=== PATIENT | male | born 1960 | race Caucasian/White ===

== ENCOUNTER 2017-01-02 11:14 | Emergency (ER) | payer MEDICAID, OTHER ==
[2017-01-02] MEDS ORDERED: Ketorolac 60 MG/2 ML SDV IM ONE (11:52)
[2017-01-02 11:53] VITALS: BP 111/44
--- NOTE | 2017-01-02 12:53 | EDM.PDOC ---
ED HPI GENERAL MEDICAL PROBLEM - General Chief Complaint: Upper Extremity Injury/Pain Stated Complaint: LEFT ELBOW/SHOULDER PAIN, FALL Time Seen by Provider: 01/02/17 11:55 Source of Information: Reports: Patient History Limitations: Reports: No Limitations - History of Present Illness INITIAL COMMENTS - FREE TEXT/NARRATIVE: pt fell in the apartment and hit his left shoulder and left elebow. He has a fair amount of swelling involving the elebow. Onset: Today Duration: Hour(s): Associated Symptoms: Reports: No Other Symptoms - Related Data Allergies Allergy/AdvReac Type Severity Reaction Status Date / Time No Known Allergies Allergy Verified 03/18/13 12:32 Home Meds: Home Meds Acetaminophen/HYDROcodone [Ronks 325-5 MG] 1 tab PO Q6H PRN 01/03/17 [History] Past Medical History - Past Health History Medical/Surgical History: Denies Medical/Surgical History Social & Family History - Tobacco Use Smoking Status *Q: Current Every Day Smoker Years of Tobacco use: 40 Packs/Tins Daily: 1 Used Tobacco, but Quit: No Second Hand Smoke Exposure: Yes - Caffeine Use Caffeine Use: Reports: Coffee, Energy Drinks, Soda, Tea - Alcohol Use Days Per Week of Alcohol Use: 4 Number of Drinks Per Day: 8 Total Drinks Per Week: 32 - Recreational Drug Use Recreational Drug Use: No Review of Systems - Review of Systems Review Of Systems: See Below Constitutional: Reports: No Symptoms Eyes: Reports: No Symptoms Ears: Reports: No Symptoms Nose: Reports: No Symptoms Mouth/Throat: Reports: No Symptoms Respiratory: Reports: No Symptoms Cardiovascular: Reports: No Symptoms GI/Abdominal: Reports: No Symptoms Musculoskeletal: Reports: Other (pain in the left elebow. ) Skin: Reports: No Symptoms ED EXAM, GENERAL - Physical Exam Exam: See Below Free Text/Narrative:: pt arrived with pain in th left elebow. Exam Limited By: No Limitations General Appearance: Alert, Anxious Ears: Normal TMs Nose: Normal Inspection Throat/Mouth: Normal Inspection Head: Atraumatic Neck: Normal Inspection Respiratory/Chest: No Respiratory Distress Cardiovascular: Normal Peripheral Pulses GI/Abdominal: Other ( Pain in the upper abdoman. ) Rectal (Males) Exam: Deferred Back Exam: Normal Inspection Extremities: Normal Inspection Neurological: Alert, Oriented, Normal Cognition Course - Vital Signs Last Recorded V/S: Last Vital Signs Temp 35.1 C L 01/02/17 11:51 Pulse 52 L 01/02/17 11:51 Resp 18 01/02/17 11:51 BP 111/44 L 01/02/17 11:51 Pulse Ox 100 01/02/17 11:51 - Orders/Labs/Meds Meds: Medications Discontinued Medications Generic Name Dose Route Start Last Admin Trade Name Freq PRN Reason Stop Dose Admin Ketorolac Tromethamine 60 mg 01/02/17 11:52 01/02/17 12:02 Toradol IM 01/02/17 11:53 60 mg ONETIME ONE Administration - Re-Assessments/Exams Free Text/Narrative Re-Assessment/Exam: 01/02/17 15:25 xrays show a markedly communited proximal ulna. Dr Loya plans to do surgeryon this on Saturday. h will see him in the clinic on . Departure - Departure Time of Disposition: 15:26 Disposition: Home, Self-Care 01 Condition: Fair Clinical Impression: Fracture of proximal ulna - Discharge Information Instructions: Ulnar Fracture Referrals: PCP,None [Primary Care Provider] - Forms: ED Department Discharge Care Plan Goals: appt with Dr Loya--ortho tomorrow, ice to the elebow, elevate on the pillow. norco 5/325 q6h prn for food.
--- NOTE | 2017-01-02 13:10 | CR ---
Left elbow There is a comminuted fracture involving the proximal ulna. There is a fracture through the mid olec ranon with 1.8 cm of distraction. The metaphyseal portion of the ulna is also fractured. The humerus or radius appear intact. Impression: 1. Comminuted fractures of the proximal ulna.
--- NOTE | 2017-01-02 13:11 | CR ---
Shoulder Comp Lt FINDINGS: There is normal alignment of the glenohumeral as well as AC joints. No fractures are demon strated. There are no significant degenerative changes. The soft tissues are unremarkable. IMPRESSION: Negative exam of the shoulder.
== END 2017-01-02 15:50 | disposition home or self-care (01) ==
LOC: JP.ED 11:14
DX: S52.002A Unspecified fracture of upper end of left ulna, initial encounter for closed fracture (principal); F17.210 Nicotine dependence, cigarettes, uncomplicated; W19.XXXA Unspecified fall, initial encounter; Y92.039 Unspecified place in apartment as the place of occurrence of the external cause
CPT/HCPCS: 73030; 73080; 96372; 99284; J1885

== ENCOUNTER 2017-01-04 06:14 | Day surgery (SDC) | payer MEDICAID ==
[2017-01-04] MEDS ORDERED: Lactated Ringers 1,000 ML IV SCH (07:00)
[2017-01-04] MEDS ORDERED: Scopolamine 1.5 MG Transdermal Patch TRDERM PRN (07:00)
[2017-01-04] MEDS ORDERED: Bupivacaine 0.5% 50 ML MDV ONE (07:10)
[2017-01-04] MEDS ORDERED: Dexamethasone 4 MG/ML SDV ONE (07:13)
[2017-01-04] MEDS ORDERED: Rocuronium 50 MG/5 ML Vial ONE (07:13)
[2017-01-04] MEDS ORDERED: Propofol 200 MG/20 ML SDV ONE (07:13)
[2017-01-04] MEDS ORDERED: Ondansetron 4 MG/2 ML SDV ONE (07:13)
[2017-01-04] MEDS ORDERED: Neostigmine Methylsulfate 1 MG/ML 5 ML Syringe ONE (07:13)
[2017-01-04] MEDS ORDERED: Povidone-Iodine 10% Soln 118.25 ML Bottle ONE (07:13)
[2017-01-04] MEDS ORDERED: fentaNYL 250 MCG/5 ML SDV ONE (07:13)
[2017-01-04] MEDS ORDERED: ceFAZolin 2 GM in Premix Bag 1 BAG IV ONE (07:30)
[2017-01-04] MEDS ORDERED: fentaNYL 100 MCG/2 ML SDV ONE ×3 (07:52→08:56)
[2017-01-04] MEDS ORDERED: CHECK SCOPOLAMINE PATCH DAILY TOP SCH (09:00)
[2017-01-04] MEDS ORDERED: Succinylcholine 200 MG/10 ML MDV ONE (09:06)
[2017-01-04] MEDS ORDERED: Bacitracin Oint 1 GM U/D Packet ONE (09:17)
[2017-01-04] MEDS ORDERED: hydrOXYzine HCl 100 MG/2 ML SDV IM ONE (10:00)
[2017-01-04] MEDS ORDERED: Meperidine PF 100 MG/ML Syringe IM ONE (10:00)
[2017-01-04] MEDS ORDERED: Acetaminophen/HYDROcodone 325-5 MG Tab PO PRN (10:28)
--- NOTE | 2017-01-04 10:44 | OR ---
DATE OF PROCEDURE: 01/04/2017 PREOPERATIVE DIAGNOSIS: Left olecranon fracture, closed. POSTOPERATIVE DIAGNOSIS: Left olecranon fracture, closed. PROCEDURE: 1. Open reduction and internal fixation of left olecranon fracture with comminution and 6 fragments. 2. Application of long arm splint. [employer] FINISHER: FLORIN Jeffrey. FLUID: Lactated Ringer solution. ESTIMATED BLOOD LOSS: 75 mL. ANESTHESIA: General endotracheal intubation. COMPLICATIONS: None. SPECIMEN: None. DISCHARGE DISPOSITION: Stable to PACU. INDICATIONS FOR THE PROCEDURE: The patient was seen preoperatively in the clinic. He had been at the emergency department two days ago after a refrigerator fell on him, as he was going backwards down the stairs, he was found to have a left olecranon fracture. He was placed into a posterior splint, told to followup in the clinic. We saw him in clinic. The risks and benefits of the procedure were explained to the patient. Informed consent was obtained. DETAILS OF PROCEDURE: The patient was seen preoperatively by myself and the Anesthesia Staff in the preoperative holding area where the operative site was marked. He was brought to the operative suite by Anesthesia staff where general anesthesia was administered. He was placed on to a PEG board in the right lateral recumbent position. All extremities were found to be well padded. The left upper extremity had a well-padded tourniquet placed. He was then placed into a very simple U-arm rivera with extra padding. The left upper extremity was then prepped and draped in a sterile manner. Time-out was called identifying the correct patient, correct procedure, the correct site and antibiotics had begun with appropriate period of time. The left upper extremity was then exsanguinated. Tourniquet was raised to 250 mmHg for 58 minutes and taken down prior to closure. An incision was made just lateral to the midline and then lateral over the elbow and then lateral on the posterior ulnar shaft in order to get a good soft tissue envelope. Bleeding was controlled with Bovie electrocautery. I then used Metzenbaum and pickups to dissect down through the deep fascia as well as a great deal of increased swellings from the hematoma. I then cleared the ulnar shaft with a Dewitt elevator and Bovie. I was hoping to leave the periosteum on proximally but due to our plate type, I felt it better to remove the periosteum and carefully dissect the triceps insertion, and I did so with Bovie electrocautery. I then used 116 mm Synthes olecranon locking plate. Before I placed this, I got my fragments in fairly good apposition and then used K-wires medial and laterally across the olecranon process and into the shaft to hold it. This worked fairly well. We then applied the plate and then I placed a 3.5 mm cortical screw to hold it in place. We then used a K -wire through the plate on the proximal fragment and then I placed another 3.5 mm cortical screw at the compression side, loosened my other cortical screw and under compression , I used this to reduce the proximal olecranon fragment closer to the plate. After that was completed, I tightened the screws back up and then placed every single one of my locking screws and placed another screw from the medial to lateral side going from distal to proximal to hold one of those fragments better apposition which was previously held with the K- wire. We took final films and this showed good reduction. We then copiously irrigated with Betadine infused irrigation. I then closed the periosteal envelope with 2-0 Vicryl [id number] sutures. We then irrigated again and then closed the subcutaneous layer with 2- 0 Vicryl interrupted sutures, followed by skin jus after injecting local anesthetic. We then cleaned the patient up and placed him into a posterior splint and then rolled it back into a supine position and transferred to his hospital bed and taken to the recovery area in good condition. Pedro Loya DO /[id number] MTDD
[2017-01-04 11:57] VITALS: BP 120/80
== END 2017-01-04 11:20 | disposition home or self-care (01) ==
LOC: JP.SDS 06:14
PROVIDERS: ATTEND Orthopaedic Surgery
DX: S52.022A Displaced fracture of olecranon process without intraarticular extension of left ulna, initial encounter for closed fracture (principal); F17.210 Nicotine dependence, cigarettes, uncomplicated; Z98.890 Other specified postprocedural states
CPT/HCPCS: 24685; 76000; A9270; J0330; J0690; J1100; J2175; J2405; J2704; J3010; J3410; J7120; C1713